=== PATIENT | female | born 1945 | race Caucasian/White ===

== ENCOUNTER 2018-04-20 00:57 | Emergency (ER) | payer OTHER ==
[~2018-04-20] VITALS: Ht 152.4 cm; Wt 54.4 kg
[~2018-04-20 00:57] MED LIST: NORCO 5-325 TA1 EACH PO; VIBRAMYCIN 100100 MG PO
[2018-04-20] MEDS ORDERED: PREDNISONE 20 M20 MG PO ×3 (02:21→02:36)
[2018-04-20 02:43] VITALS: BP 129/78
== END 2018-04-20 02:59 | disposition home or self-care (01) ==
LOC: ER 00:57
DX: T78.40XA Allergy, unspecified, initial encounter (principal)